=== PATIENT | female | born 1995 ===

== ENCOUNTER 2024-11-19 07:01 | Outpatient (REF) | payer OTHER, SELFPAY ==
--- NOTE | ~2024-11-19 | US_ITS ---
EXAMINATION: US OBSTETRICAL ULTRASOUND CLINICAL INFORMATION: Positive test, has IUD, evaluate for . Low hCG results. COMPARISON: None available. LMP: Uncertain.. TECHNIQUE: Ultrasound of the maternal pelvis is performed using transabdominal and transvaginal transducers. Transvaginal imaging is performed due to inadequate visualization transabdominally. Color Doppler performed on the ovaries bilaterally. FINDINGS: Uterus measures 8.1 x 3.0 x 4.1 cm. No focal myometrial abnormality. Endometrial stripe measures 3 mm, is uniform, without irregularity. There is no definable gestational sac or dual decidual reaction identified. IUD is in place and appears well situated. The cervix has a normal appearance. MATERNAL ADNEXA: The right maternal ovary measures 5.0 x 2.1 x 2.2 cm. There is a follicular cyst with several daughter cysts measuring 4.0 x 1.8 x 1.2 cm. There is normal color Doppler flow to the right ovary. There is no right adnexal mass. The left maternal ovary measures 2.3 x 1.3 x 2.2 cm. Normal sonographic appearance. There is normal color Doppler flow to the left ovary. There is no left adnexal mass. There is no free pelvic fluid. US/US OB pelvic and transvaginal IMPRESSION: 1. Normal uterus and endometrium with appropriately positioned IUD device. Endometrium measures 3 mm in thickness and is uniform. There is no dual decidual reaction or definable gestational sac. 2. There is no adnexal mass to suggest ectopic . There is no free pelvic fluid. 3. The ovaries are normal with a right follicular cyst measuring up to 4.0 cm. Electronically signed by: Sarbjit Arias MD 11/19/2024 11:31 AM EDT
== END 2024-11-19 07:02 | disposition home or self-care (01) ==
LOC: HO.UMASIMG 07:01
PROVIDERS: Visit Provider Nurse Practitioner Women's Health
DX: Z32.01 Encounter for pregnancy test, result positive (principal)
CPT/HCPCS: 76801; 76817

== ENCOUNTER → 2024-11-19 09:30 | Outpatient (BNV) | payer OTHER, SELFPAY | PROVIDERS: Visit Provider Radiology Diagnostic Radiology | DX: O26.30 Retained intrauterine contraceptive device in pregnancy, unspecified trimester (principal); N83.01 Follicular cyst of right ovary | CPT/HCPCS: 76801; 76817 ==